=== PATIENT | female | born 1970 | race Caucasian/White ===

== ENCOUNTER 2016-05-17 13:48 | Emergency (ER) | payer OTHER, MEDICARE ==
[~2016-05-17] VITALS: Ht 157.5 cm; Wt 126.6 kg
--- NOTE | 2016-05-17 15:25 | ED GENERAL ADULT ---
History of Present Illness General Chief Complaint: General Adult Stated Complaint: PER PT HIGH BLOOD SUGAR Source: patient Exam Limitations: no limitations Vital Signs & Intake/Output Vital Signs & Intake/Output Vital Signs Date Time Temp Pulse Resp B/P Pulse O2 O2 Flow FiO2 Ox Delivery Rate 05/17 1705 97.1 98 18 121/87 95 Room Air 05/17 1606 Room Air Room Air 05/17 1358 96.5 106 18 136/92 96 Room Air Allergies Coded Allergies: No Known Allergies (05/17/16) Reconcile Medications Escitalopram Oxalate 20 MG TABLET 1 TAB PO DAILY DEPRESSION (Reported) Fluconazole (Diflucan) 150 MG TABLET 1 TAB PO ONCE yeast infection take on a dose on day 1 then may repeat in 7 days if needed Furosemide 20 MG TABLET 1 TAB PO DAILY EDEMA (Reported) Insulin NPL/Insulin Lispro (Humalog Mix 75-25 Kwikpen) 100 UNIT/ML (75-25) INSULN.PEN DM (Reported) 60 UNITS QAM AND 38 UNITS QPM Metformin HCl 1,000 MG TABLET 1 TAB PO BID DM (Reported) Metoclopramide HCl (Reglan) 10 MG TABLET 1 TAB PO 4 TIMES/DAY PRN nausea Metoprolol Succinate 50 MG TAB.ER.24H 1 TAB PO DAILY B/P (Reported) Pantoprazole Sodium 40 MG TABLET.DR 1 TAB PO DAILY ACID REFLUX (Reported) Rosuvastatin Calcium (Crestor) 10 MG TABLET 1 TAB PO DAILY CHOLESTEROL ( Reported) Varenicline Tartrate (Chantix) 0.5 MG (11)-1 MG (42) TAB.DS.PK 2 TAB PO D SMOKING CESSATION (Reported) Triage Note: PT TO ER C/C HYPERGLYCEMIA X 3 DAYS; PT DIABETIC TAKES METFORMIN AND HUMALOG PRESCRIBED. FSG IN TRIAGE 334. ALSO C/O BURNING ON URINATION AND WHITE VAGINAL D/C. Triage Nurses Notes Reviewed? yes HPI: Patient is a 46-year-old female presents complaining of hyperglycemia, cough, body aches, dysuria. Symptoms onset 3 days ago. Patient reports that her blood sugars have been between 405 100 at home. Patient has been taking her metformin and her fixed dosing Humalog as directed. Patient reports that she developed a yeast infection, white vaginal discharge, 2 days ago. Body aches are currently moderate. Patient reports she developed a migraine headache today, headache is consistent with previous headaches. Positive polyuria and polydipsia. Patient denies fevers, chest pain, vomiting, abdominal pain. (ELICEO RAYMUNDO) Past History Travel History Traveled to [place] past 21 day No Medical History Any Pertinent Medical History? see below for history Neurological: migraine Cardiovascular: hypertension, hyperlipidemia Respiratory: COPD Musculoskeletal: degen joint disease Endocrine: diabetes Surgical History Surgical History: cholecystectomy, Psychosocial History What is your primary language French Tobacco Use: Current Daily Use Daily Tobacco Use Amount/Type: => 5 Cigarettes daily Family History Hx Contributory? No (ELICEO RAYMUNDO) Review of Systems Review of Systems Constitutional: Reports: malaise, weakness. Denies: fever. EENTM: Reports: no symptoms. Respiratory: Reports: cough, sputum production, wheezing. Denies: short of breath. Cardiovascular: Denies: chest pain. GI: Reports: nausea. Denies: abdominal pain, vomiting. Genitourinary: Reports: see HPI. Musculoskeletal: Reports: joint pain, muscle pain. Skin: Reports: no symptoms. Neurological/Psychological: Reports: headache. Hematologic/Endocrine: Reports: polyuria, polydipsia. Immunologic/Allergic: Reports: no symptoms. (ELICEO RAYMUNDO) Physical Exam Physical Exam General Appearance: well developed/nourished, alert, awake, obese Head: atraumatic, normal appearance Eyes: Bilateral: normal appearance, PERRL, EOMI. Ears, Nose, Throat: normal pharynx, normal ENT inspection, hearing grossly normal Neck: normal inspection, supple, full range of motion Respiratory: normal breath sounds, chest non-tender, no respiratory distress, lungs clear Cardiovascular: regular rate/rhythm Gastrointestinal: normal bowel sounds, soft, non-tender Back: normal inspection, normal range of motion Extremities: normal inspection, normal capillary refill, normal range of motion Neurologic/Psych: no motor/sensory deficits, awake, alert, oriented x 3, normal gait, normal mood/affect, fisher sponge hooking II-XII nml as tested Skin: intact, normal color, warm/dry Lymphatic: no anterior cervical bernabe Core Measures ACS in differential dx? No CVA/TIA Diagnosis: No Severe Sepsis Present: No Septic Shock Present: No (ELICEO RAYMUNDO) Progress Differential Diagnoses I considered the following diagnoses in my evaluation of the patient: Hyperglycemia, electrolyte abnormality, DKA, hyperosmolar nonketotic state, urinary tract infection, yeast infection, pneumonia, bronchitis Plan of Care: Orders Procedure Date/time Status Add-on Test (ER Only) 05/17 1617 Active CULTURE,URINE 05/17 153 Active URINE 05/17 153 Complete URINALYSIS 05/17 153 Complete COMPREHENSIVE METABOLIC PANEL 05/17 153 Complete CBC WITHOUT DIFFERENTIAL 05/17 153 Complete ACETONE 05/17 153 Complete Laboratory Tests 05/17/16 1547: CBC w Diff NO MAN DIFF REQ, RBC 4.96, MCV 91.6, MCH 30.5, RDW 14.6 H, MPV 11.7 H, Gran % 67.1, Lymphocytes % 26.9, Monocytes % 3.6, Eosinophils % 1.9, Basophils % 0.5, Absolute Granulocytes 7.0 H, Absolute Lymphocytes 2.8, Absolute Monocytes 0.4, Absolute Eosinophils 0.2, Absolute Basophils 0, PUBS MCHC 33.3 05/17/16 1545: Anion Gap 11, Estimated GFR > 60, BUN/Creatinine Ratio 18.6, Glucose 213 H, Calcium 9.6, Total Bilirubin 0.5, AST 25, ALT 43, Alkaline Phosphatase 106, Total Protein 7.4, Albumin 4.4, Globulin 3.0, Albumin/Globulin Ratio 1.5, Acetone Level NEGATIVE 05/17/16 1535: Urinalysis LIGHT H, Urine Color YEL, Urine Clarity HAZY H, Urine pH 6.0, Ur Specific [place] 1.010, Urine Protein NEG, Urine Ketones NEG, Urine Nitrite NEG, Urine Bilirubin NEG, Urine Urobilinogen 0.2, Ur Leukocyte Esterase TRACE H, Ur Microscopic SEDIMENT EXAMINED, Urine RBC 1-3, Urine WBC 1-3 H, Ur Epithelial Cells FEW, Urine Hemoglobin SMALL H, Urine Glucose >=1000 H, Urine Test NEGATIVE Microbiology 05/17 1534 URINE ROUT: Urine Culture - RECD Results of labs and chest x-ray discussed with patient. Patient's blood sugar low 200s. Appears stable for discharge with close outpatient follow-up. (ELICEO RAYMUNDO) Initial ED EKG: none (ELICEO RAYMUNDO) Departure Departure Time of Disposition: 1702 Disposition: HOME OR SELF CARE Condition: Stable Clinical Impression Primary Impression: Hyperglycemia Secondary Impressions: Yeast infection Referrals: YANY BRITTON,TIFFANY COLON (PCP/Family) Additional Instructions: Follow up with your primary doctor this week for further evaluation. Return to the ER if worsening of symptoms. Departure Forms: Customer Survey General Discharge Information Prescriptions: Current Visit Scripts Fluconazole (Diflucan) 1 TAB PO ONCE #2 TAB take on a dose on day 1 then may repeat in 7 days if needed Metoclopramide HCl (Reglan) 1 TAB PO 4 TIMES/DAY PRN nausea #12 TAB (ELICEO RAYMUNDO) PA/RESEARCH DEVELOPMENT MANAGER Co-Sign Statement Statement: ED Attending supervision documentation- [] I saw and evaluated the patient. I have also reviewed all the pertinent lab results and diagnostic results. I agree with the findings and the plan of care as documented in the PA's/RESEARCH DEVELOPMENT MANAGER's documentation. x I have reviewed the ED Record and agree with the PA's/RESEARCH DEVELOPMENT MANAGER's documentation. [] Additions or exceptions (if any) to the PAs/RESEARCH DEVELOPMENT MANAGER's note and plan are summarized below: [] (KAVIN BRITTON,JOSE) Critical Care Note Critical Care Note Critical Care Time: non-applicable (ELICEO RAYMUNDO)
[2016-05-17] MEDS ORDERED: FUROSEMIDE20 M1 PO (15:59)
[2016-05-17] MEDS ORDERED: METFORMIN HCL1000 M1 PO (16:00)
[2016-05-17] MEDS ORDERED: ESCITALOPRAM OX20 MG PO (16:00)
[2016-05-17] MEDS ORDERED: PANTOPRAZOLE SO40 M1 PO (16:00)
[2016-05-17 16:02] LABS: ABSOLUTE BASOPHIL COUNT 0 /CUMM (0.0-0.2); ABSOLUTE EOSINOPHIL COUNT 0.2 /CUMM (0.0-0.7); ABSOLUTE LYMPH COUNT 2.8 /CUMM (1.2-3.4); ABSOLUTE MONOCYTE COUNT 0.4 /CUMM (0.10-0.60); BASOPHIL % 0.5 % (0.0-2.0); EOSINOPHIL % 1.9 % (0-5); GRANULOCYTE % 67.1 % (42.2-75.2); HEMATOCRIT 45.4 % (37-47); MEAN CORPUSCULAR HGB 30.5 PG (27.0-31.0); MEAN CORPUSCULAR HGB CONC 33.3 G/DL (33.0-37.0); MEAN CORPUSCULAR VOLUME 91.6 FL (81.0-99.0); MEAN PLATELET VOLUME 11.7 FL (7.4-10.4); PLATELET COUNT 171 /CUMM (130-400); RBC DISTRIBUTION WIDTH 14.6 % (11.5-14.5); RED BLOOD CELL CT 4.96 /CUMM (4.20-5.40); WHITE BLOOD CELL COUNT 10.5 /CUMM (4.8-10.8)
[2016-05-17] MEDS ORDERED: CRESTOR10 M1 PO (16:03)
[2016-05-17] MEDS ORDERED: HUMALOG MI100 UNIT/3 SC (16:04)
[2016-05-17] MEDS ORDERED: CHANTIX1 EACH PO (16:05)
[2016-05-17] MEDS ORDERED: METOPROLOL SUCC50 M2 PO (16:05)
--- NOTE | 2016-05-17 16:45 | RADIOLOGY REPORT ---
EXAMINATION: XR CHEST CLINICAL INFORMATION: Cough, sputum production, hyperglycemia. Evaluate for pneumonia. COMPARISON: No relevant prior studies are available for comparison. TECHNIQUE: PA and lateral views of the chest were obtained. FINDINGS: The lungs are clear. The cardiomediastinal silhouette is normal in size. There is no pleural effusion or pneumothorax. Fusion hardware is noted within the lower cervical spine. Two surgical clips are seen within the right neck. IMPRESSION: No acute cardiopulmonary disease.
[2016-05-17] MEDS ORDERED: REGLAN10 M1 PO (17:03)
[2016-05-17] MEDS ORDERED: DIFLUCAN150 M1 PO (17:03)
[2016-05-17 17:05] VITALS: BP 121/87
== END 2016-05-17 17:15 ==
LOC: ERH 13:48
PROVIDERS: Physician Assistant
DX: R73.9 Hyperglycemia, unspecified (principal); B37.3 Candidiasis of vulva and vagina
CPT/HCPCS: 81001; 81025; 87086; 87147; J2765

== ENCOUNTER 2016-10-04 21:07 | Emergency (ER) | payer OTHER, MEDICARE ==
[~2016-10-04] VITALS: Ht 157.5 cm; Wt 135.2 kg
[~2016-10-04 21:07] MED LIST: CHANTIX1 EACH PO; CRESTOR10 M1 PO; DIFLUCAN150 M1 PO; ESCITALOPRAM OX20 MG PO; FUROSEMIDE20 M1 PO; HUMALOG MI100 UNIT/3 SC; METFORMIN HCL1000 M1 PO; METOPROLOL SUCC50 M2 PO; PANTOPRAZOLE SO40 M1 PO; REGLAN10 M1 PO
--- NOTE | 2016-10-04 21:59 | ED CARDIAC/CP/PALPITATIONS ---
History of Present Illness General Chief Complaint: Chest Pain Stated Complaint: PT HAS CHEST PAIN AND PAIN DOWN THE RT ARM Source: patient Exam Limitations: no limitations Vital Signs & Intake/Output Vital Signs & Intake/Output Vital Signs Date Time Temp Pulse Resp B/P B/P Pulse O2 O2 Flow FiO2 Mean Ox Delivery Rate 10/04 2214 Room Air 10/04 2116 97.3 105 20 134/81 95 Room Air ED Intake and Output 10/05 0000 10/04 1200 Intake Total Output Total Balance Patient 298 lb Weight Weight Reported by Patient Measurement Method Allergies Coded Allergies: No Known Allergies (10/04/16) Reconcile Medications Escitalopram Oxalate 20 MG TABLET 1 TAB PO DAILY DEPRESSION (Reported) Fluconazole (Diflucan) 150 MG TABLET 1 TAB PO ONCE yeast infection take on a dose on day 1 then may repeat in 7 days if needed Furosemide 20 MG TABLET 1 TAB PO DAILY EDEMA (Reported) Ibuprofen 600 MG TABLET 1 TAB PO TID PRN pain with food Insulin NPL/Insulin Lispro (Humalog Mix 75-25 Kwikpen) 100 UNIT/ML (75-25) INSULN.PEN DM (Reported) 60 UNITS QAM AND 38 UNITS QPM Metformin HCl 1,000 MG TABLET 1 TAB PO BID DM (Reported) Metoclopramide HCl (Reglan) 10 MG TABLET 1 TAB PO 4 TIMES/DAY PRN nausea Metoprolol Succinate 50 MG TAB.ER.24H 1 TAB PO DAILY B/P (Reported) Pantoprazole Sodium 40 MG TABLET.DR 1 TAB PO DAILY ACID REFLUX (Reported) Rosuvastatin Calcium (Crestor) 10 MG TABLET 1 TAB PO DAILY CHOLESTEROL ( Reported) Varenicline Tartrate (Chantix) 0.5 MG (11)-1 MG (42) TAB.DS.PK 2 TAB PO D SMOKING CESSATION (Reported) Triage Note: TRIAGE: PT TO ER C/C PAIN FROM MID CHEST, WRAPS AROUND R INTO BACK AND INTO R ARM. ONSET THIS MORNING, CONSTANT SINCE ONSET. REPORTS HAS SOB AT BASELINE AND IS NO DIFFERENT TODAY. REPORTS HAS HAD NAUSEA X 1.5 WKS, VOMITED X 1 TODAY. REPORTS "COLD SWEAT CONSTANT FOR A WEEK AND A HALF SINCE THE NAUSEA STARTED". HAD EKG DONE IN [place] PRIOR TO TRIAGE. Triage Nurses Notes Reviewed? yes Onset: Gradual Duration: hour(s): Timing: recent history Location: central, right sided chest pain Radiation: "It hurts in my arm and shoulder." Activities at Onset: emotional stress Modifying Factors: Worsens With: movement, palpation. HPI: 46 yo woman h/o diabetes, presents with chest pain. She notes, "I've had the pain all day. It started early in the morning. It hurts when I press on my chest and take a deep breath. It hurts when I move my arm." She notes that she has no dyspnea shortness of breath fever chills wheezing or cough. She states, "I'm under a lot of stress. Stress with family. Is very difficult." She denies SI or HI. She is otherwise well and has no other concerns. Past History Travel History Traveled to [place] past 21 day No Medical History Any Pertinent Medical History? 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 No Review of Systems Review of Systems Constitutional: Reports: no symptoms. EENTM: Reports: no symptoms. Respiratory: Reports: no symptoms. Cardiovascular: Reports: no symptoms. GI: Reports: no symptoms. Genitourinary: Reports: no symptoms. Musculoskeletal: Reports: no symptoms. Skin: Reports: no symptoms. Neurological/Psychological: Reports: no symptoms. Hematologic/Endocrine: Reports: no symptoms. Immunologic/Allergic: Reports: no symptoms. All Other Systems: Reviewed and Negative Physical Exam Physical Exam General Appearance: well developed/nourished, mild distress Head: atraumatic, normal appearance Eyes: Bilateral: normal appearance, PERRL, EOMI. Ears, Nose, Throat: normal pharynx, normal ENT inspection Neck: normal inspection, supple, full range of motion Respiratory: normal breath sounds, no respiratory distress, quiet respiration, lungs clear, right sided parasternal chest wall tenderness. Pain elicited with palpation in the right chest, right trapezoid muscle. Right upper back. Muscle spasm noted and thesemuscle groups. Cardiovascular: regular rate/rhythm Gastrointestinal: normal bowel sounds, soft, non-tender, no organomegaly Back: normal inspection Extremities: normal inspection, normal capillary refill, normal range of motion Neurologic/Psych: no motor/sensory deficits, awake, alert, oriented x 3, anxious Skin: intact, normal color, warm/dry Core Measures ACS in differential dx? No Severe Sepsis Present: No Septic Shock Present: No Progress Differential Diagnosis: AMI, chest wall pain versus unstable angina versus other. Plan of Care: Orders Procedure Date/time Status TROPONIN LEVEL 10/05 29 Complete EKG 10/05 29 Active TROPONIN LEVEL 10/04 2109 Complete HUMAN BETA HCG SCREEN 10/04 2109 Complete D-DIMER 10/04 2109 Complete COMPREHENSIVE METABOLIC PANEL 10/04 2109 Complete CBC WITHOUT DIFFERENTIAL 10/04 2109 Complete EKG 10/04 2108 Active Laboratory Tests 10/05/16 0200: Troponin I < 0.01 10/04/167: Anion Gap 12, Estimated GFR > 60, BUN/Creatinine Ratio 13.3, Glucose 304 H, Calcium 9.5, Total Bilirubin 0.4, AST 22, ALT 52, Alkaline Phosphatase 147 H, Troponin I < 0.01, Total Protein 7.3, Albumin 4.3, Globulin 3.0, Albumin/ Globulin Ratio 1.4, Total Beta HCG NEGATIVE, D-Dimer High Sensitivty < 200, CBC w Diff NO MAN DIFF REQ, RBC 4.76, MCV 89.9, MCH 29.3, RDW 16.4 H, MPV 12.0 H, Gran % 66.0, Lymphocytes % 27.9, Monocytes % 4.0, Eosinophils % 1.7, Basophils % 0.4, Absolute Granulocytes 8.2 H, Absolute Lymphocytes 3.4, Absolute Monocytes 0.5, Absolute Eosinophils 0.2, Absolute Basophils 0, PUBS MCHC 32.6 L Diagnostic Imaging: Viewed by Me: Radiology Read. Discussed w/RAD: Radiology Read. CXR Impression: no acute abnormality, no infiltrates, normal size heart, normal mediastinum Initial ED EKG: normal axis, normal intervals, normal p-waves, normal QRS complex, normal sinus rhythm Repeat EKG: unchanged Comments: PATIENT: PARISA BARNETT PRESENT AGE: 46 PATIENT ACCOUNT NO: [id number] : 68 LOCATION: [facility] ORDERING PHYSICIAN: PING VERA MD SERVICE DATE: 10/04/162 EXAM TYPE: RAD - XRY-PORTABLE CHEST XRAY EXAMINATION: XR PORTABLE CHEST CLINICAL INFORMATION: Right-sided chest pain COMPARISON: 05/17/2016 TECHNIQUE: Portable frontal view of the chest was obtained. FINDINGS: Assessment is somewhat limited secondary to patient body habitus. Lung volumes are symmetric. No focal consolidation is seen. No appreciable pneumothorax, significant pleural effusion, or overt pulmonary edema. The cardiomediastinal contour is unremarkable. No acute osseous findings are seen. Fusion hardware is noted in the lower cervical spine. IMPRESSION: No acute cardiopulmonary findings. DICTATED BY: HIGINIO PINON MD DATE/TIME DICTATED:10/05/1640 BARREL BRIDGE ASSEMBLER:RACHEL DATE/TIME TRANSCRIBED:10/05/1640 CONFIDENTIAL, DO NOT COPY WITHOUT APPROPRIATE AUTHORIZATION. <Electronically signed in Other Vendor System> SIGNED BY: HIGINIO PINON MD 10/05/16 Departure Departure Disposition: HOME OR SELF CARE Condition: Stable Clinical Impression Primary Impression: Chest pain Referrals: YANY BRITTON,TIFFANY COLON (PCP/Family) Departure Forms: Customer Survey General Discharge Information Prescriptions: Current Visit Scripts Ibuprofen 1 TAB PO TID PRN pain #30 TAB with food Comments 10/04/16, 23:05... discussed results with patient... will check trop/ekg #2. pt is pain free after toradol. 10/05/16, 2:41AM... Pt is sleeping comfortably... trop neg x 2, ekg benign x 2 ... pt safe for discharge and will follow up with her pmd and cardiology. Critical Care Note Critical Care Note Critical Care Time: non-applicable
[2016-10-04 22:01] LABS: ABSOLUTE BASOPHIL COUNT 0 /CUMM (0.0-0.2); ABSOLUTE EOSINOPHIL COUNT 0.2 /CUMM (0.0-0.7); ABSOLUTE GRANULOCYTE CT 8.2 /CUMM (1.4-6.5); ABSOLUTE LYMPH COUNT 3.4 /CUMM (1.2-3.4); ABSOLUTE MONOCYTE COUNT 0.5 /CUMM (0.10-0.60); BASOPHIL % 0.4 % (0.0-2.0); EOSINOPHIL % 1.7 % (0-5); HEMATOCRIT 42.8 % (37-47); MEAN CORPUSCULAR HGB 29.3 PG (27.0-31.0); MEAN CORPUSCULAR HGB CONC 32.6 G/DL (33.0-37.0); MEAN CORPUSCULAR VOLUME 89.9 FL (81.0-99.0); PLATELET COUNT 215 /CUMM (130-400); RBC DISTRIBUTION WIDTH 16.4 % (11.5-14.5); RED BLOOD CELL CT 4.76 /CUMM (4.20-5.40); WHITE BLOOD CELL COUNT 12.4 /CUMM (4.8-10.8)
--- NOTE | 2016-10-05 00:46 | RADIOLOGY REPORT ---
EXAMINATION: XR PORTABLE CHEST CLINICAL INFORMATION: Right-sided chest pain COMPARISON: 05/17/2016 TECHNIQUE: Portable frontal view of the chest was obtained. FINDINGS: Assessment is somewhat limited secondary to patient body habitus. Lung volumes are symmetric. No focal consolidation is seen. No appreciable pneumothorax, significant pleural effusion, or overt pulmonary edema. The cardiomediastinal contour is unremarkable. No acute osseous findings are seen. Fusion hardware is noted in the lower cervical spine. IMPRESSION: No acute cardiopulmonary findings.
[2016-10-05] MEDS ORDERED: IBUPROFEN600 M1 PO (02:38)
[2016-10-05 02:46] VITALS: BP 130/77
== END 2016-10-05 02:46 ==
LOC: ERH 21:07
PROVIDERS: Pediatrics
DX: R07.9 Chest pain, unspecified (principal)
CPT/HCPCS: 93005; 93010; 96372; J1885